=== PATIENT | female | born 2000 | race American Indian/Alaskan Native ===

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

== ENCOUNTER 2019-04-08 08:50 | Emergency (ER) | payer MEDICAID ==
--- NOTE | 2019-04-08 09:12 | EDM.PDOC ---
ED HPI GENERAL MEDICAL PROBLEM - General Chief Complaint: Fever Stated Complaint: FEVER FOR COUPLE OF DAYS Time Seen by Provider: 04/08/19 09:10 Source of Information: Reports: Patient, Family (Mother), Old Records, RN, RN Notes Reviewed History Limitations: Reports: No Limitations - History of Present Illness INITIAL COMMENTS - FREE TEXT/NARRATIVE: Pt presents to ER from home by POV with c/o fever since Saturday afternoon (), with body aches, nausea, loss of appetite, occasional flank pain, and occasional headache. She states that she vomited x2 yesterday. She denies abdominal pain, diarrhea, sore throat, rash, cough, dysuria, neck pain or stiffness. Pt and her mother are very worried because the mother's co-worker's son recently had viral meningitis. However, neither the co-worker nor the mother have had any symptoms, and the pt did not have any contact with the boy reported to have had meningitis. The pt does state that she was treated Macrobid for pyelonephritis a few weeks ago and did not f/u to recheck her urine as she was instructed. Onset: Gradual Onset Date: 04/07/19 Duration: Constant Location: Reports: Head, Generalized Quality: Reports: Ache Severity: Moderate Improves with: Reports: None Worsens with: Reports: None Associated Symptoms: Reports: No Other Symptoms Back Pain Score (Numeric/FACES): 7 - Related Data Allergies Allergy/AdvReac Type Severity Reaction Status Date / Time No Known Allergies Allergy Verified 04/08/19 09:03 Past Medical History - Past Health History Medical/Surgical History: Denies Medical/Surgical History HEENT History: Reports: None Cardiovascular History: Reports: None Respiratory History: Reports: Other (See Below) Other Respiratory History: Reactive airway disease Gastrointestinal History: Reports: None Genitourinary History: Reports: None APIARIST History: Reports: Musculoskeletal History: Reports: Other (See Below) Other Musculoskeletal History: patella femoral syndroma Neurological History: Reports: None Psychiatric History: Reports: None Endocrine/Metabolic History: Reports: None Hematologic History: Reports: None Immunologic History: Reports: None Oncologic (Cancer) History: Reports: None Dermatologic History: Reports: None - Infectious Disease History Infectious Disease History: Reports: None - Past Surgical History Head Surgeries/Procedures: Reports: None Social & Family History - Family History Family Medical History: Noncontributory - Tobacco Use Smoking Status *Q: Current Every Day Smoker Years of Tobacco use: 2 Packs/Tins Daily: 0.5 Second Hand Smoke Exposure: No - Caffeine Use Caffeine Use: Reports: Soda - Recreational Drug Use Recreational Drug Use: Yes Drug Use in Last 12 Months: Yes Recreational Drug Type: Reports: Marijuana/Hashish - Living Situation & Occupation Living situation: Reports: with Family ED ROS GENERAL - Review of Systems Review Of Systems: ROS reveals no pertinent complaints other than HPI. ED EXAM, GENERAL - Physical Exam Exam: See Below Exam Limited By: No Limitations General Appearance: Alert, No Apparent Distress Eye Exam: Bilateral Eye: Normal Inspection Ears: Normal External Exam, Normal Canal, Hearing Grossly Normal, Normal TMs Nose: Normal Inspection, Normal Mucosa, No Blood Throat/Mouth: Normal Lips, Normal Oropharynx, Normal Voice, No Airway Compromise , Other (Dry oral membranes) Head: Atraumatic, Normocephalic Neck: Normal Inspection, Supple, Non-Tender, Full Range of Motion, Other (No nuchal rigidity). No: Lymphadenopathy (L), Lymphadenopathy (R) Respiratory/Chest: No Respiratory Distress, Lungs Clear, Normal Breath Sounds, No Accessory Muscle Use, Chest Non-Tender Cardiovascular: Regular Rate, Rhythm, Tachycardia GI/Abdominal: Normal Bowel Sounds, Soft, Non-Tender, No Organomegaly, No Distention, No Abnormal Bruit, No Mass Back Exam: Normal Inspection Extremities: Normal Inspection, Normal Range of Motion, Non-Tender, Normal Capillary Refill, No Pedal Edema Neurological: Alert, Oriented, CN II-XII Intact, Normal Cognition, Normal Gait, No Motor/Sensory Deficits Psychiatric: Normal Affect, Normal Mood Skin Exam: Warm, Dry, Intact, Normal Color, No Rash Course - Vital Signs Last Recorded V/S: Last Vital Signs Temp 98.4 F 04/08/19 10:07 Pulse 100 04/08/19 10:10 Resp 16 04/08/19 10:10 BP 111/65 04/08/19 10:10 Pulse Ox 98 04/08/19 10:10 - Orders/Labs/Meds Orders: Active Orders 24 hr Category Date Time Status Peripheral IV Care [RC] . DIRECTED Care 04/08/19 09:20 Active CHLAMYDIA AND GONORRHEA BY TMA Routine Lab 04/08/19 09:57 Received CULTURE BLOOD [BC] Stat Lab 04/08/19 09:30 Received CULTURE BLOOD [] Stat Lab 04/08/19 09:35 Received CULTURE STREP A CONFIRMATION [] Stat Lab 04/08/19 09:29 Results CULTURE URINE [] Stat Lab 04/08/19 09:57 Received STREP SCRN A RAPID W CULT CONF [] Stat Lab 04/08/19 09:29 Results UA W/MICROSCOPIC [URIN] Stat Lab 04/08/19 09:57 Results Sodium Chloride 0.9% [Saline Flush] Med 04/08/19 09:20 Active 10 ml FLUSH ASDIRECTED PRN cefTRIAXone [Rocephin] 2 gm Med 04/08/19 10:32 Active Sodium Chloride 0.9% [Normal Saline] 100 ml IV ONETIME Blood Culture x2 Reflex Set [OM.PC] Stat Oth 04/08/19 09:20 Ordered Peripheral IV Insertion Adult [OM.PC] Stat Oth 04/08/19 09:20 Ordered Medication Orders Ceftriaxone Sodium 2 gm/ (Sodium Chloride) 100 mls @ 200 mls/hr IV ONETIME ONE Stop: 04/08/19 11:01 Last Admin: 04/08/19 10:41 Dose: 200 mls/hr Sodium Chloride (Saline Flush) 10 ml FLUSH ASDIRECTED PRN PRN Reason: Keep Vein Open Last Admin: 04/08/19 09:36 Dose: 10 ml Labs: Laboratory Tests 04/08/19 04/08/19 04/08/19 Range/Units 09:30 09:30 09:35 WBC 22.5 H (5.0-10.0) 10^3/uL RBC 4.60 (4.2-5.4) 10^6/uL Hgb 13.0 D (12.0-16.0) g/dL Hct 38.7 (37.0-47.0) % MCV 84.1 D (80-100) fL MCH 28.3 (27.0-34.0) pg MCHC 33.6 (33.0-35.0) g/dL Plt Count 132 L (150-450) 10^3/uL Neut % (Auto) 87.7 H (42.2-75.2) % Lymph % (Auto) 3.4 L (20.5-50.1) % [place] % (Auto) 8.9 H (2-8) % Eos % (Auto) 0.0 L (1.0-3.0) % Baso % (Auto) 0.0 (0.0-1.0) % Sodium 134 L (135-145) mmol/L Potassium 3.1 L (3.6-5.0) mmol/L Chloride 98 L (101-111) mmol/L Carbon Dioxide 22.0 (21.0-31.0) mmol/L Anion Gap 17.1 BUN 10 (7-18) mg/dL Creatinine 0.8 (0.6-1.3) mg/dL Est Cr Clr Drug Dosing 97.35 mL/min Estimated GFR (MDRD) > 60 BUN/Creatinine Ratio 12.50 Glucose 128 H (74-105) mg/dL Lactic Acid 1.2 (0.5-2.2) mmol/L Calcium 8.8 (8.4-10.2) mg/dl Total Bilirubin 1.7 H (0.2-1.0) mg/dL AST 19 (10-42) IU/L ALT 11 (10-60) IU/L Alkaline Phosphatase 59 (42-121) IU/L Total Protein 8.3 H (6.7-8.2) g/dl Albumin 4.4 (3.2-5.5) g/dl Globulin 3.9 Albumin/Globulin Ratio 1.13 Urine Color (YELLOW) Urine Appearance (CLEAR) Urine pH (5.0-9.0) Ur Specific [place] (1.005-1.030) Urine Protein (NEGATIVE) Urine Glucose (UA) (NEGATIVE) Urine Ketones (NEGATIVE) Urine Occult Blood (NEGATIVE) Urine Nitrite (NEGATIVE) Urine Bilirubin (NEGATIVE) Urine Urobilinogen (0.2-1.0) mg/dL Ur Leukocyte Esterase (NEGATIVE) Urine HCG, Qual Urine Opiates Screen (NEGATIVE) Ur Oxycodone Screen (NEGATIVE) Urine Methadone Screen (NEGATIVE) Ur Barbiturates Screen (NEGATIVE) U Tricyclic Antidepress (NEGATIVE) Ur Phencyclidine Scrn (NEGATIVE) Ur Amphetamine Screen (NEGATIVE) U Methamphetamines Scrn (NEGATIVE) Urine MDMA Screen (NEGATIVE) U Benzodiazepines Scrn (NEGATIVE) Urine Cocaine Screen (NEGATIVE) U Marijuana (THC) Screen (NEGATIVE) 04/08/19 04/08/19 04/08/19 Range/Units 09:57 09:57 09:57 WBC (5.0-10.0) 10^3/uL RBC (4.2-5.4) 10^6/uL Hgb (12.0-16.0) g/dL Hct (37.0-47.0) % MCV (80-100) fL MCH (27.0-34.0) pg MCHC (33.0-35.0) g/dL Plt Count (150-450) 10^3/uL Neut % (Auto) (42.2-75.2) % Lymph % (Auto) (20.5-50.1) % [place] % (Auto) (2-8) % Eos % (Auto) (1.0-3.0) % Baso % (Auto) (0.0-1.0) % Sodium (135-145) mmol/L Potassium (3.6-5.0) mmol/L Chloride (101-111) mmol/L Carbon Dioxide (21.0-31.0) mmol/L Anion Gap BUN (7-18) mg/dL Creatinine (0.6-1.3) mg/dL Est Cr Clr Drug Dosing mL/min Estimated GFR (MDRD) BUN/Creatinine Ratio Glucose (74-105) mg/dL Lactic Acid (0.5-2.2) mmol/L Calcium (8.4-10.2) mg/dl Total Bilirubin (0.2-1.0) mg/dL AST (10-42) IU/L ALT (10-60) IU/L Alkaline Phosphatase (42-121) IU/L Total Protein (6.7-8.2) g/dl Albumin (3.2-5.5) g/dl Globulin Albumin/Globulin Ratio Urine Color Yellow (YELLOW) Urine Appearance Cloudy (CLEAR) Urine pH 5.5 (5.0-9.0) Ur Specific [place] 1.025 (1.005-1.030) Urine Protein 100 H (NEGATIVE) Urine Glucose (UA) Negative (NEGATIVE) Urine Ketones 40 H (NEGATIVE) Urine Occult Blood Moderate H (NEGATIVE) Urine Nitrite Negative (NEGATIVE) Urine Bilirubin Negative (NEGATIVE) Urine Urobilinogen 1.0 (0.2-1.0) mg/dL Ur Leukocyte Esterase Moderate H (NEGATIVE) Urine HCG, Qual Negative Urine Opiates Screen Negative (NEGATIVE) Ur Oxycodone Screen Positive H (NEGATIVE) Urine Methadone Screen Negative (NEGATIVE) Ur Barbiturates Screen Negative (NEGATIVE) U Tricyclic Antidepress Negative (NEGATIVE) Ur Phencyclidine Scrn Negative (NEGATIVE) Ur Amphetamine Screen Negative (NEGATIVE) U Methamphetamines Scrn Negative (NEGATIVE) Urine MDMA Screen Negative (NEGATIVE) U Benzodiazepines Scrn Negative (NEGATIVE) Urine Cocaine Screen Negative (NEGATIVE) U Marijuana (THC) Screen Positive H (NEGATIVE) Meds: Medications Generic Name Dose Route Start Last Admin Trade Name Freq PRN Reason Stop Dose Admin Ceftriaxone Sodium 2 gm/ 100 mls @ 200 mls/hr 04/08/19 10:32 04/08/19 10:41 Sodium Chloride IV 04/08/19 11:01 200 mls/hr ONETIME ONE Administration Sodium Chloride 10 ml 04/08/19 09:20 04/08/19 09:36 Saline Flush FLUSH 10 ml ASDIRECTED PRN Administration Keep Vein Open Discontinued Medications Generic Name Dose Route Start Last Admin Trade Name Freq PRN Reason Stop Dose Admin Acetaminophen 650 mg 04/08/19 09:21 04/08/19 09:36 Tylenol PO 04/08/19 09:22 650 mg NOW ONE Administration Sodium Chloride 1,000 mls @ 999 mls/hr 04/08/19 09:21 04/08/19 09:35 Normal Saline IV 04/08/19 10:21 999 mls/hr .BOLUS ONE Administration Ketorolac Tromethamine 30 mg 04/08/19 09:21 04/08/19 10:09 Toradol IVPUSH 04/08/19 09:22 30 mg ONETIME ONE Administration Ondansetron HCl 4 mg 04/08/19 09:21 04/08/19 09:36 Zofran IV 04/08/19 09:22 4 mg ONETIME ONE Administration - Re-Assessments/Exams Free Text/Narrative Re-Assessment/Exam: 04/08/19 10:44 Review of 03/17/19 ER visit from [place] reveals urine culture sensitive to Rocephin and Levaquin. Although the pt was diagnosed with pyelonephritis, she was prescribed Macrobid which does not cover kidney infections. Departure - Departure Time of Disposition: 10:50 Disposition: Home, Self-Care 01 Condition: Fair Clinical Impression: Pyelonephritis - Discharge Information *PRESCRIPTION DRUG MONITORING PROGRAM REVIEWED*: No *COPY OF PRESCRIPTION DRUG MONITORING REPORT IN PATIENT MANSOOR: No Instructions: Pyelonephritis, Adult, [id number], Fever, Adult, [id number] Forms: ED Department Discharge Additional Instructions: Rx: Levaquin 500mg Rx: Zofran 4mg Drink plenty of water. Follow up in clinic in 7 to 10 days for urine recheck. Return to ER if not improving as expected or if worse at any time. - My Orders Last 24 Hours: My Active Orders 04/08/19 09:20 Peripheral IV Care [RC] . DIRECTED Sodium Chloride 0.9% [Saline Flush] 10 ml FLUSH ASDIRECTED PRN Blood Culture x2 Reflex Set [OM.PC] Stat Peripheral IV Insertion Adult [OM.PC] Stat 04/08/19 09:29 CULTURE STREP A CONFIRMATION [RM] Stat STREP SCRN A RAPID W CULT CONF [RM] Stat 04/08/19 09:30 CULTURE BLOOD [BC] Stat 04/08/19 09:35 CULTURE BLOOD [BC] Stat 04/08/19 09:57 CHLAMYDIA AND GONORRHEA BY TMA Routine CULTURE URINE [RM] Stat UA W/MICROSCOPIC [URIN] Stat 04/08/19 10:32 cefTRIAXone [Rocephin] 2 gm Sodium Chloride 0.9% [Normal Saline] 100 ml IV ONETIME - Assessment/Plan Last 24 Hours: My Active Orders 04/08/19 09:20 Peripheral IV Care [RC] . DIRECTED Sodium Chloride 0.9% [Saline Flush] 10 ml FLUSH ASDIRECTED PRN Blood Culture x2 Reflex Set [OM.PC] Stat Peripheral IV Insertion Adult [OM.PC] Stat 04/08/19 09:29 CULTURE STREP A CONFIRMATION [RM] Stat STREP SCRN A RAPID W CULT CONF [RM] Stat 04/08/19 09:30 CULTURE BLOOD [BC] Stat 04/08/19 09:35 CULTURE BLOOD [BC] Stat 04/08/19 09:57 CHLAMYDIA AND GONORRHEA BY TMA Routine CULTURE URINE [RM] Stat UA W/MICROSCOPIC [URIN] Stat 04/08/19 10:32 cefTRIAXone [Rocephin] 2 gm Sodium Chloride 0.9% [Normal Saline] 100 ml IV ONETIME
[2019-04-08] MEDS ORDERED: Sodium Chloride 0.9% 10 ML Syringe FLUSH PRN (09:20)
[2019-04-08] MEDS ORDERED: Ketorolac 30 MG/ML SDV IVPUSH ONE (09:21)
[2019-04-08] MEDS ORDERED: Sodium Chloride 0.9% 1,000 ML IV ONE (09:21)
[2019-04-08] MEDS ORDERED: Ondansetron 4 MG/2 ML SDV IV ONE (09:21)
[2019-04-08] MEDS ORDERED: Acetaminophen 325 MG Tab PO ONE (09:21)
[2019-04-08 10:02] LABS: ANION GAP 17.1; CHLORIDE,CL 98 mmol/L (101-111); SODIUM,NA 134 mmol/L (135-145)
[2019-04-08 10:11] VITALS: BP 111/65; PULSE 100
[2019-04-08] MEDS ORDERED: cefTRIAXone 2 GM in Sodium Chloride 0.9% 100 ML IV ONE (10:32)
== END 2019-04-08 11:15 | disposition home or self-care (01) ==
LOC: DL.ED 08:50
DX: N12 Tubulo-interstitial nephritis, not specified as acute or chronic (principal); F17.210 Nicotine dependence, cigarettes, uncomplicated
CPT/HCPCS: 36415; 80053; 80305; 81001; 81025; 83605; 85025; 87040; 87081; 87086; 87088; 87186; 87430; 87491; 87591; 87804; 96361; 96365; 96375; 99283; A9270; J0696; J1885; J2405; J7030; J7050

== ENCOUNTER 2020-01-11 02:12 | Inpatient (IN) | payer MEDICAID ==
[2020-01-11] MEDS ORDERED: Sodium Chloride 0.9% 10 ML Syringe FLUSH PRN (02:34)
[2020-01-11] MEDS: Lactated Ringers 1,000 ML IV SCH ×2 (02:35→03:25)
--- NOTE | 2020-01-11 02:38 | PCM.LDHP ---
L&D History of Present Illness - General Date of Service: 01/11/20 Admit Problem/Dx: Patient Status Order with Admit Dx/Problem 01/11/20 02:35 Patient Status [ADT] Routine Admission Diagnosis/Problem Admission Diagnosis/Problem care in third trimester Source of Information: Patient History Limitations: Reports: No Limitations - History of Present Illness Introduction:: 19-year-old at unknown gestational age presents with increased contractions. Patient states she has had increased contractions off and on throughout the day but they became regular and painful starting around 2200 this evening. She has not had any care with the due to insurance issues and fear of COVID. She is unsure of her LMP but is "pretty sure" she is at least 35 weeks gestation. Patient reports she has had some swelling over the past 2 weeks. Baby has been active. No vaginal bleeding or leaking. No headaches or vision changes. She does admit to regular THC use and occasional oxycodone use during this . No other drug use. Last was uncomplicated. She was induced at 40 weeks gestation. Delivery was vacuum-assisted due to tachycardia. Patient did have a 500 mL PPH that required rectal cytotec. 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: Musculoskeletal History: Reports: Other (See Below) Other Musculoskeletal History: patella femoral syndroma Neurological History: Reports: None Psychiatric History: Reports: None Endocrine/Metabolic History: Reports: None Hematologic History: Reports: None Immunologic History: Reports: None Oncologic (Cancer) History: Reports: None Dermatologic History: Reports: None - Infectious Disease History Infectious Disease History: Reports: None - Past Surgical History Head Surgeries/Procedures: Reports: None Social & Family History - Family History Family Medical History: Noncontributory - Caffeine Use Caffeine Use: Reports: Soda - Living Situation & Occupation Living situation: Reports: with Family H&P Review of Systems - Review of Systems: Review Of Systems: See Below General: Reports: No Symptoms HEENT: Reports: No Symptoms Pulmonary: Reports: No Symptoms Cardiovascular: Reports: No Symptoms Genitourinary: Reports: No Symptoms Musculoskeletal: Reports: Back Pain Skin: Reports: No Symptoms Neurological: Reports: No Symptoms L&D Exam - Exam Exam: See Below - OB Specific Contraction Duration (sec): 60 Contraction Frequency (min): 3 Contraction Intensity: Moderate to Strong Movement: Active Heart Tones: Present Heart Tones per Min: 130 Heart Rate (FHR) Variability: Moderate (6-25 bmp) Presentation: Vertex - Nolan Score Nolan Score Cervix Position: Anterior Nolan Score Consistency: Soft Nolan Score Effacement: >80% Nolan Score Dilation: > 5 cm Nolan Score 's Station: -1 ,0 Nolan Score Total: 12 - Exam General: Alert, Oriented HEENT: Conjunctiva Clear, Mucosa Moist & [place] Lungs: Clear to Auscultation, Normal Respiratory Effort Cardiovascular: Regular Rate, Regular Rhythm. No: Systolic Murmur, Diastolic Murmur GI/Abdominal Exam: Non-Tender Genitourinary: Normal external exam Back Exam: Normal Inspection Extremities: No Pedal Edema Skin: Warm, Dry, Intact - Problem List (1) care in third trimester SNOMED Code(s): 348712838, 55263083, 02933451, 438591364, 514037885 ICD Code: Z34.93 - ENCNTR FOR SUPRVSN OF NORMAL PREG, UNSP, THIRD TRIMESTER Status: Acute Current Visit: Yes (2) labor in third trimester SNOMED Code(s): 0766725 ICD Code: O60.03 - LABOR WITHOUT DELIVERY, THIRD TRIMESTER Status: Acute Current Visit: Yes (3) No care in current in third trimester SNOMED Code(s): 902924663, 327581431 ICD Code: O09.33 - SUPRVSN OF PREG W INSUFFICIENT ANTENAT CARE, THIRD TRIMESTER Status: Acute Current Visit: Yes (4) Drug use affecting in third trimester SNOMED Code(s): 13848654, 04386767, 300503589 ICD Code: O99.323 - DRUG USE COMPLICATING , THIRD TRIMESTER Status: Acute Current Visit: Yes Problem List Initiated/Reviewed/Updated: Yes Orders Last 24hrs: Active Orders 24 hr Category Date Time Status Patient Status [ADT] Routine ADT 01/11/20 02:35 Ordered Monitoring [RC] CONTINUOUS Care 01/11/20 02:35 Ordered POC Labs [RC] ASDIRECTED Care 01/11/20 02:35 Ordered POC Labs [RC] ASDIRECTED Care 01/11/20 02:37 Ordered Peripheral IV Care [RC] . DIRECTED Care 01/11/20 02:36 Ordered Up ad Aurea [RC] ASDIRECTED Care 01/11/20 02:35 Ordered Vital Signs [RC] PER UNIT ROUTINE Care 01/11/20 02:35 Ordered Nothing Per Oral Diet [DIET] Diet 01/11/20 Dinner Ordered OB 2 Or 3 Tri Sgl 1st Gest [US] Stat Exams 01/11/20 02:34 Ordered ALANINE AMINOTRANSFERASE,ALT [CHEM] Routine Lab 01/11/20 02:37 Ordered ASPARTATE AMNIOTRANSFERASE,AST [CHEM] Routine Lab 01/11/20 02:37 Ordered BLOOD UREA NITROGEN,BUN [CHEM] Routine Lab 01/11/20 02:37 Ordered CBC W/O DIFF,HEMOGRAM [HEME] Routine Lab 01/11/20 02:37 Ordered CHLAMYDIA AND GONORRHEA BY TMA Routine Lab 01/11/20 02:37 Ordered CREATININE W/GFR [CHEM] Routine Lab 01/11/20 02:37 Ordered CULTURE GROUP B STREP [RM] Routine Lab 01/11/20 02:37 Ordered DRUG SCREEN URINE BIORAD [URCHEM] Routine Lab 01/11/20 02:37 Ordered HBSAG SCREEN [REF] Urgent Lab 01/11/20 02:37 Ordered HEP C VIRUS AB [REF] Urgent Lab 01/11/20 02:37 Ordered HIV-1/2 AG/AB COMBO 4TH GEN [CHEM] Routine Lab 01/11/20 02:37 Ordered LACTATE DEHYDROGENASE,LDH [CHEM] Routine Lab 01/11/20 02:37 Ordered MISC TEST Routine Lab 01/11/20 02:37 Ordered PROTEIN/CREATININE RATIO,URINE [URCHEM] Routine Lab 01/11/20 02:37 Ordered RPR (SYPHILIS SERO) W/ RFLX [REF] Routine Lab 01/11/20 02:37 Ordered RUBELLA ANTIBODY, IGG [REF] Routine Lab 01/11/20 02:37 Ordered TYPE AND SCREEN [BBK] Routine Lab 01/11/20 02:37 Ordered UA RFX AZCKARY AND CULT IF INDIC [URIN] Routine Lab 01/11/20 02:37 Ordered URIC ACID [CHEM] Routine Lab 01/11/20 02:37 Ordered WET PREP [MYC] Routine Lab 01/11/20 02:37 Ordered Acetaminophen [Tylenol] Med 01/11/20 02:34 Ordered 650 mg PO Q4H PRN Lactated Ringers @ 125 MLS/HR(1000ml) Med 01/11/20 02:45 Ordered Lactated Ringers [Ringers, Lactated] 1,000 ml IV ASDIRECTED Sodium Chloride 0.9% [Saline Flush] Med 01/11/20 02:34 Ordered 10 ml FLUSH ASDIRECTED PRN Peripheral IV Insertion Adult [OM.PC] Urgent Oth 01/11/20 02:34 Ordered Resuscitation Status Routine Resus Stat 01/11/20 02:34 Ordered Medication Orders Acetaminophen (Tylenol) 650 mg PO Q4H PRN PRN Reason: Pain (mild 1-3) Lactated Ringer's (Ringers, Lactated) 1,000 mls @ 125 mls/hr IV ASDIRECTED MACIEL Sodium Chloride (Saline Flush) 10 ml FLUSH ASDIRECTED PRN PRN Reason: Keep Vein Open Assessment/Plan Comment:: 19-year-old at unknown gestational age presenting in active labor --Ultrasound shows 36w1d fetus in vertex presentation, placenta is clear of the cervix 1. Initiate routine intrapartum orders 2. IOB labs, UDS, GBS, wet prep and STD testing were obtained 3. PIH labs were obtained as patient does have elevated blood pressures 4. Patient desires intrathecal 5. Expectant management. Anticipate . Tiffany Lozano MD
[2020-01-11] MEDS ORDERED: Lactated Ringers 1,000 ML IV ONE (03:18)
[2020-01-11] MEDS ORDERED: Penicillin G Potassium 5 MILLUNITS in Sodium Chloride 0.9% 100 ML IV ONE (03:18)
[2020-01-11] MEDS ORDERED: Lidocaine 1% 30 ML SDV INJECT PRN (03:18)
[2020-01-11] MEDS ORDERED: Misoprostol 400 MCG (4 X 100 MCG TAB) RECTAL PRN (03:18)
[2020-01-11] MEDS ORDERED: Carboprost Tromethamine 250 MCG/1 ML Amp IM PRN (03:18)
[2020-01-11] MEDS ORDERED: Tranexamic Acid 1,000 MG in Sodium Chloride 0.9% 100 ML IV PRN (03:18)
[2020-01-11] MEDS ORDERED: Ondansetron 4 MG/2 ML SDV IVPUSH PRN (03:18)
[2020-01-11] MEDS ORDERED: Methylergonovine 0.2 MG/1 ML Amp IM PRN (03:18)
--- NOTE | 2020-01-11 03:22 | US ---
PROCEDURE INFORMATION: Exam: US After First Trimester, Transabdominal Exam date and time: 01/11/2020 4:53 AM Age: 19 years old Clinical indication: Lmp or gestational age (in weeks): ? ; Antepartum complications; Other: No care assess age and placenta having contractions; ; Additional info: No care; Assess age and placenta TECHNIQUE: Imaging protocol: Real-time transabdominal obstetrical ultrasound of the maternal pelvis and a second or third trimester with image documentation. COMPARISON: No relevant prior studies available. FINDINGS: Gestation: Single live intrauterine gestation. Heart rate: heartbeat measures 120 bpm. Presentation: Single live intrauterine in cephalic position. Placenta: The placenta is fundal into the left and appears normal. Amniotic fluid: Amniotic fluid is normal for gestational age. BIOMETRY: Estimated gestational age: Ultrasound measurements correspond to an estimated age of 36 weeks 1 day. Estimated due date: 02/07/2020. Estimated weight: Estimated weight is 6 lb 8 oz. Biparietal diameter: 85.6 mm Head circumference: 320.9 mm. MATERNAL ANATOMY: Uterus: Unremarkable. Cervix: Unremarkable. Right adnexa: Ovary is obscured by overlying bowel gas. Left adnexa: Ovary is obscured by overlying bowel gas. IMPRESSION: Single live intrauterine with ultrasound measurements corresponding to an age of 36 weeks 1 day. No acute abnormality. survey not performed.
[2020-01-11] MEDS ORDERED: fentaNYL 100 MCG/2 ML SDV ONE (03:23)
[2020-01-11] MEDS ORDERED: EPINEPHrine 1 MG/1 ML Amp ONE ×2 (03:23→15:36)
[2020-01-11] MEDS ORDERED: Penicillin G Potassium 5,000,000 Unit Vial ONE (03:25)
[2020-01-11] MEDS ORDERED: Oxytocin/Normal Saline 30 UNIT/500 ML BAG IV SCH (03:30)
[2020-01-11] MEDS ORDERED: cefTRIAXone 1 GM in Sodium Chloride 0.9% 50 ML IV ONE ×2 (05:00→09:30)
[2020-01-11] MEDS ORDERED: Simethicone 80 MG Tab.Chew PO PRN (05:05)
[2020-01-11] MEDS ORDERED: Benzocaine/Menthol 20%-0.5% Spray 56 GM Canister TOP PRN (05:05)
[2020-01-11] MEDS ORDERED: Oxytocin 10 Units/1 ML SDV IM PRN (05:05)
--- NOTE | 2020-01-11 05:26 | PCM.DEL ---
L & D Note - General Info Date of Service: 01/11/20 - Delivery Note Labor: Spontaneous, Augmented by ARM Delivery Outcome: Livebirth Infant Delivery Method: Spontaneous Vaginal Delivery-Single Presentation: Vertex Nuchal Cord: Present, Reduced Anesthesia Type: Intrathecal Amniotic Fluid Description: Clear Episiotomy Type: None Laceration: None Placenta: Intact, Spontaneous Cord: 3 Vessels Estimated Blood Loss: 300 Resuscitation Needed: Yes : Suctioned, Bulb Syringe, Stimulated, Warmed, Warmer Used Score 1 min: 8 Score 5 min: 9 Delivery Comments (Free Text/Narrative):: 19-year-old at unknown gestational age presented in active labor. Ultrasou nd confirmed a 36w1d fetus in vertex position. Patient was noted to be 8 cm dilated. She received 1 dose PCN for GBS unknown status. Intrathecal was given for pain control. Patient progressed to 9+ cm. AROM was performed for small amount of clear fluid. Patient progressed to complete dilation. After about 25 minutes of pushing, she delivered a viable female with Apgars of 8 and 9 at 1 and 5 minutes respectively. Nuchal cord x 2 was reduced at the perineum after delivery. was placed on the patient's chest. Cord was clamped x 2 and cut by patient's significant other. Cord blood was collected. Placenta delivered spontaneously about 3 minutes later. Pitocin was initiated. Uterus was initially firm then became boggy. Uterine atony improved with uterine massage. Perineum was inspected and noted to be intact. Patient tolerated the procedure well, and there were no immediate complications. - General Info Date of Service: 01/11/20 - Patient Data Lab Results Last 24 Hours: Laboratory Results - last 24 hr 01/11/20 01/11/20 01/11/20 Range/Units 02:37 02:39 02:39 WBC 10.8 H (5.0-10.0) 10^3/uL RBC 3.35 L (4.2-5.4) 10^6/uL Hgb 8.2 L D (12.0-16.0) g/dL Hct 26.6 L (37.0-47.0) % MCV 79.4 L D (80-100) fL MCH 24.5 L (27.0-34.0) pg MCHC 30.8 L (33.0-35.0) g/dL Plt Count 168 (150-450) 10^3/uL BUN 11 (7-18) mg/dL Creatinine 0.66 (0.55-1.02) mg/dL Est Cr Clr Drug Dosing TNP Estimated GFR (MDRD) > 60 Uric Acid 4.7 (2.6-6.0) mg/dL AST 15 (15-37) U/L ALT 14 (14-59) U/L Lactate Dehydrogenase 155 (81-234) U/L Urine Color Yellow (YELLOW) Urine Appearance Slightly cloudy (CLEAR) Urine pH 7.0 (5.0-9.0) Ur Specific [place] 1.020 (1.005-1.030) Urine Protein Negative (NEGATIVE) Urine Glucose (UA) Negative (NEGATIVE) Urine Ketones Negative (NEGATIVE) Urine Occult Blood Small H (NEGATIVE) Urine Nitrite Negative (NEGATIVE) Urine Bilirubin Negative (NEGATIVE) Urine Urobilinogen 0.2 (0.2-1.0) mg/dL Ur Leukocyte Esterase Moderate H (NEGATIVE) Urine RBC 0-5 /HPF Urine WBC 30-40 H (0-5/HPF) /HPF Ur Epithelial Cells Moderate H (NOT SEEN) /HPF Amorphous Sediment Rare (NOT SEEN) /HPF Urine Bacteria Few (0-FEW/HPF) /HPF Urine Mucus Few H (NOT SEEN) /LPF Ur Random Creatinine (No establ ref range) mg/dL U Random Total Protein (0.0-11.9) mg/dL Protein/Creatinin Ratio (<150.0) mg/g Urine Opiates Screen (NEGATIVE) Ur Oxycodone Screen (NEGATIVE) Urine Methadone Screen (NEGATIVE) Ur Barbiturates Screen (NEGATIVE) U Tricyclic Antidepress (NEGATIVE) Ur Phencyclidine Scrn (NEGATIVE) Ur Amphetamine Screen (NEGATIVE) U Methamphetamines Scrn (NEGATIVE) Urine MDMA Screen (NEGATIVE) U Benzodiazepines Scrn (NEGATIVE) Urine Cocaine Screen (NEGATIVE) U Marijuana (THC) Screen (NEGATIVE) HIV-1 Antibody Non-reactive (NONREACTIVE) HIV-2 Antibody Non-reactive (NONREACTIVE) HIV P24 Antigen Non-reactive (NONREACTIVE) SARS-CoV-2 RNA (RT-PCR) (NEGATIVE) Blood Type Gel Antibody Screen 01/11/20 01/11/20 01/11/20 Range/Units 02:39 02:42 02:42 WBC (5.0-10.0) 10^3/uL RBC (4.2-5.4) 10^6/uL Hgb (12.0-16.0) g/dL Hct (37.0-47.0) % MCV (80-100) fL MCH (27.0-34.0) pg MCHC (33.0-35.0) g/dL Plt Count (150-450) 10^3/uL BUN (7-18) mg/dL Creatinine (0.55-1.02) mg/dL Est Cr Clr Drug Dosing Estimated GFR (MDRD) Uric Acid (2.6-6.0) mg/dL AST (15-37) U/L ALT (14-59) U/L Lactate Dehydrogenase (81-234) U/L Urine Color (YELLOW) Urine Appearance (CLEAR) Urine pH (5.0-9.0) Ur Specific [place] (1.005-1.030) Urine Protein (NEGATIVE) Urine Glucose (UA) (NEGATIVE) Urine Ketones (NEGATIVE) Urine Occult Blood (NEGATIVE) Urine Nitrite (NEGATIVE) Urine Bilirubin (NEGATIVE) Urine Urobilinogen (0.2-1.0) mg/dL Ur Leukocyte Esterase (NEGATIVE) Urine RBC /HPF Urine WBC (0-5/HPF) /HPF Ur Epithelial Cells (NOT SEEN) /HPF Amorphous Sediment (NOT SEEN) /HPF Urine Bacteria (0-FEW/HPF) /HPF Urine Mucus (NOT SEEN) /LPF Ur Random Creatinine 40.40 (No establ ref range) mg/dL U Random Total Protein 13.2 H (0.0-11.9) mg/dL Protein/Creatinin Ratio 326.7 H (<150.0) mg/g Urine Opiates Screen Negative (NEGATIVE) Ur Oxycodone Screen Positive H (NEGATIVE) Urine Methadone Screen Negative (NEGATIVE) Ur Barbiturates Screen Negative (NEGATIVE) U Tricyclic Antidepress Negative (NEGATIVE) Ur Phencyclidine Scrn Negative (NEGATIVE) Ur Amphetamine Screen Negative (NEGATIVE) U Methamphetamines Scrn Negative (NEGATIVE) Urine MDMA Screen Negative (NEGATIVE) U Benzodiazepines Scrn Negative (NEGATIVE) Urine Cocaine Screen Negative (NEGATIVE) U Marijuana (THC) Screen Positive H (NEGATIVE) HIV-1 Antibody (NONREACTIVE) HIV-2 Antibody (NONREACTIVE) HIV P24 Antigen (NONREACTIVE) SARS-CoV-2 RNA (RT-PCR) (NEGATIVE) Blood Type O POSITIVE Gel Antibody Screen Negative 01/11/20 Range/Units 02:42 WBC (5.0-10.0) 10^3/uL RBC (4.2-5.4) 10^6/uL Hgb (12.0-16.0) g/dL Hct (37.0-47.0) % MCV (80-100) fL MCH (27.0-34.0) pg MCHC (33.0-35.0) g/dL Plt Count (150-450) 10^3/uL BUN (7-18) mg/dL Creatinine (0.55-1.02) mg/dL Est Cr Clr Drug Dosing Estimated GFR (MDRD) Uric Acid (2.6-6.0) mg/dL AST (15-37) U/L ALT (14-59) U/L Lactate Dehydrogenase (81-234) U/L Urine Color (YELLOW) Urine Appearance (CLEAR) Urine pH (5.0-9.0) Ur Specific [place] (1.005-1.030) Urine Protein (NEGATIVE) Urine Glucose (UA) (NEGATIVE) Urine Ketones (NEGATIVE) Urine Occult Blood (NEGATIVE) Urine Nitrite (NEGATIVE) Urine Bilirubin (NEGATIVE) Urine Urobilinogen (0.2-1.0) mg/dL Ur Leukocyte Esterase (NEGATIVE) Urine RBC /HPF Urine WBC (0-5/HPF) /HPF Ur Epithelial Cells (NOT SEEN) /HPF Amorphous Sediment (NOT SEEN) /HPF Urine Bacteria (0-FEW/HPF) /HPF Urine Mucus (NOT SEEN) /LPF Ur Random Creatinine (No establ ref range) mg/dL U Random Total Protein (0.0-11.9) mg/dL Protein/Creatinin Ratio (<150.0) mg/g Urine Opiates Screen (NEGATIVE) Ur Oxycodone Screen (NEGATIVE) Urine Methadone Screen (NEGATIVE) Ur Barbiturates Screen (NEGATIVE) U Tricyclic Antidepress (NEGATIVE) Ur Phencyclidine Scrn (NEGATIVE) Ur Amphetamine Screen (NEGATIVE) U Methamphetamines Scrn (NEGATIVE) Urine MDMA Screen (NEGATIVE) U Benzodiazepines Scrn (NEGATIVE) Urine Cocaine Screen (NEGATIVE) U Marijuana (THC) Screen (NEGATIVE) HIV-1 Antibody (NONREACTIVE) HIV-2 Antibody (NONREACTIVE) HIV P24 Antigen (NONREACTIVE) SARS-CoV-2 RNA (RT-PCR) Negative (NEGATIVE) Blood Type Gel Antibody Screen Manuel Results Last 24 Hours: Microbiology 01/11/20 02:42 Wet Prep - Final Vagina Med Orders - Current: Current Medications Acetaminophen (Tylenol) 650 mg PO Q4H PRN PRN Reason: Pain (mild 1-3) Benzocaine/Menthol (Dermoplast Pain Relief [place]) 0 gm TOP Q4H PRN PRN Reason: Perineal comfort measures Carboprost Tromethamine (Hemabate Ds) 250 mcg IM ASDIRECTED PRN PRN Reason: HEMORRHAGE Docusate Sodium (Colace) 100 mg PO BID PRN PRN Reason: Constipation Lactated Ringer's (Ringers, Lactated) 1,000 mls @ 125 mls/hr IV ASDIRECTED MACIEL Last Admin: 01/11/20 03:25 Dose: 125 mls/hr Documented by: Tranexamic Acid 1,000 mg/ (Sodium Chloride) 110 mls @ 660 mls/hr IV ONETIME PRN PRN Reason: Bleeding Oxytocin/Sodium Chloride (Pitocin In Ns 30 Unit/500 Ml) 30 unit in 500 mls @ 2 mls/hr IV TITRATE MACIEL; Protocol Ceftriaxone Sodium 1 gm/ (Sodium Chloride) 50 mls @ 100 mls/hr IV ONETIME ONE Stop: 01/11/20 05:49 Ibuprofen (Motrin) 800 mg PO Q8H PRN PRN Reason: Mild Pain or Fever Lidocaine HCl (Xylocaine-Mpf 1%) 30 ml INJECT ASDIRECTED PRN PRN Reason: Perineal Repair Methylergonovine Maleate (Methergine) 0.2 mg IM ASDIRECTED PRN PRN Reason: Hemorrhage Misoprostol (Cytotec) 800 mcg RECTAL ASDIRECTED PRN PRN Reason: Hemorrhage Ondansetron HCl (Zofran) 4 mg IVPUSH Q4H PRN PRN Reason: Nausea/Vomiting Oxytocin (Pitocin) 10 unit IM ONETIME PRN PRN Reason: Bleeding Prenat Multivit/[place]/Iron/Folic Ac ( Plus Iron) 1 each PO DAILY [facility] Simethicone (Simethicone) 80 mg PO Q4H PRN PRN Reason: Gas Sodium Chloride (Saline Flush) 10 ml FLUSH ASDIRECTED PRN PRN Reason: Keep Vein Open Witch Keisha (Medi-Pads) 1 each TOP Q4HR PRN PRN Reason: Perineal Comfort Measure Discontinued Medications Epinephrine HCl (Adrenalin) Confirm Administered Dose 1 mg .ROUTE .STK-MED ONE Stop: 01/11/20 03:24 Last Admin: 01/11/20 04:17 Dose: Not Given Documented by: Fentanyl (Sublimaze) Confirm Administered Dose 100 mcg .ROUTE .STK-MED ONE Stop: 01/11/20 03:24 Last Admin: 01/11/20 04:17 Dose: Not Given Documented by: Lactated Ringer's (Ringers, Lactated) 1,000 mls @ 999 mls/hr IV BOLUS ONE Stop: 01/11/20 04:18 Last Admin: 01/11/20 04:18 Dose: Not Given Documented by: Penicillin G Potassium 5 (millunits/ Sodium Chloride) 100 mls @ 200 mls/hr IV ONETIME ONE Stop: 01/11/20 03:47 Last Admin: 01/11/20 03:30 Dose: 200 mls/hr Documented by: Penicillin G Potassium 3 (millunits/ Sodium Chloride) 100 mls @ 200 mls/hr IV Q4H MACIEL Penicillin G Potassium (Pfizerpen) Confirm Administered Dose 5 millunits .ROUTE .STK-MED ONE Stop: 01/11/20 03:26 Last Admin: 01/11/20 04:17 Dose: Not Given Documented by: Sufentanil Citrate (Sufenta) Confirm Administered Dose 50 mcg .ROUTE .STK-MED ONE Stop: 01/11/20 03:25 Last Admin: 01/11/20 04:17 Dose: Not Given Documented by: - Problem List & Annotations (1) care in third trimester SNOMED Code(s): 108731085, 19055610, 55480406, 101287009, 217238205 Code(s): Z34.93 - ENCNTR FOR SUPRVSN OF NORMAL PREG, UNSP, THIRD TRIMESTER Status: Acute Current Visit: Yes (2) labor in third trimester SNOMED Code(s): 2613545 Code(s): O60.03 - LABOR WITHOUT DELIVERY, THIRD TRIMESTER Status: Acute Current Visit: Yes (3) No care in current in third trimester SNOMED Code(s): 025382477, 433446559 Code(s): O09.33 - SUPRVSN OF PREG W INSUFFICIENT ANTENAT CARE, THIRD TRIMESTER Status: Acute Current Visit: Yes (4) Drug use affecting in third trimester SNOMED Code(s): 69486353, 80300720, 299457599 Code(s): O99.323 - DRUG USE COMPLICATING , THIRD TRIMESTER Status: Acute Current Visit: Yes (5) Anemia affecting in third trimester SNOMED Code(s): 97012146, 22828579 Code(s): O99.013 - ANEMIA COMPLICATING , THIRD TRIMESTER Status: Acute Current Visit: Yes (6) UTI (urinary tract infection) in in third trimester SNOMED Code(s): 184684968, 160556018 Code(s): O23.43 - UNSP INFCT OF URINARY TRACT IN , THIRD TRIMESTER Status: Acute Current Visit: Yes (7) Gestational HTN SNOMED Code(s): 441871349 Code(s): O13.9 - GESTATIONAL HTN W/O SIGNIFICANT PROTEINURIA, UNSP TRIMESTER Status: Acute Current Visit: Yes - Problem List Review Problem List Initiated/Reviewed/Updated: Yes - My Orders Last 24 Hours: My Active Orders 01/11/20 02:34 Acetaminophen [Tylenol] 650 mg PO Q4H PRN Sodium Chloride 0.9% [Saline Flush] 10 ml FLUSH ASDIRECTED PRN Peripheral IV Insertion Adult [OM.PC] Urgent Resuscitation Status Routine 01/11/20 02:35 POC Labs [RC] ASDIRECTED Up ad Aurea [RC] ASDIRECTED Vital Signs [RC] PER UNIT ROUTINE 01/11/20 02:37 POC Labs [RC] ASDIRECTED CULTURE URINE [RM] Routine 01/11/20 02:39 HBSAG SCREEN [REF] Urgent HEP C VIRUS AB [REF] Urgent RPR (SYPHILIS SERO) W/ RFLX [REF] Routine RUBELLA ANTIBODY, IGG [REF] Routine 01/11/20 02:42 CHLAMYDIA AND GONORRHEA BY TMA Routine CULTURE GROUP B STREP [RM] Routine TRAMADOL, SCREEN ONLY, UR Routine 01/11/20 02:45 Lactated Ringers [Ringers, Lactated] 1,000 ml IV ASDIRECTED 01/11/20 03:14 Admission Status [Patient Status] [ADT] Routine 01/11/20 03:18 Notify Provider Vital Signs OB [RC] ASDIRECTED Carboprost Tromethamine [Hemabate DS] 250 mcg IM ASDIRECTED PRN Lidocaine 1% [Xylocaine-MPF 1%] 30 ml INJECT ASDIRECTED PRN Methylergonovine [Methergine] 0.2 mg IM ASDIRECTED PRN Ondansetron [Zofran] 4 mg IVPUSH Q4H PRN Tranexamic Acid [Cyklokapron] 1,000 mg Sodium Chloride 0.9% [Normal Saline] 100 ml IV ONETIME miSOPROStoL [Cytotec] 800 mcg RECTAL ASDIRECTED PRN Saline Lock Insert [OM.PC] Routine 01/11/20 03:30 Oxytocin/Normal Saline [Pitocin in NS 30 UNIT/500 ML] 30 unit in 500 ml IV TITRATE 01/11/20 05:05 Up ad Aurea [RC] ASDIRECTED Vital Signs [RC] PFP Benzocaine/Menthol [Dermoplast Pain Relief [place]] See Dose Instructions TOP Q4H PRN Docusate Sodium [Colace] 100 mg PO BID PRN Ibuprofen [Motrin] 800 mg PO Q8H PRN Oxytocin [Pitocin] 10 unit IM ONETIME PRN Simethicone 80 mg PO Q4H PRN witch Keisha [Medi-Pads] 1 each TOP Q4HR PRN Assess Lochia [WOMSER] Per Unit Routine Assess Uterine Involution [WOMSER] Per Unit Routine Breast Pump [WOMSER] Per Unit Routine Ice Therapy [OM.PC] Per Unit Routine Perineal Care [OM.PC] Per Unit Routine Sitz Bath [OM.PC] Per Unit Routine 01/11/20 05:20 cefTRIAXone [Rocephin] 1 gm Sodium Chloride 0.9% [Normal Saline] 50 ml IV ONETIME 01/11/20 Breakfast Regular Diet [DIET] 01/11/20 09:00 Vit with Ca/FA/Iron [ Plus Iron] 1 each PO DAILY 01/11/20 Dinner Nothing Per Oral Diet [DIET] 01/12/20 07:00 CBC W/O DIFF,HEMOGRAM [HEME] Routine - Assessment Assessment:: 19-year-old now status post - Plan Plan:: 1. Initiate routine orders 2. Will give 1 gram Rocephin IV for UTI 3. Will initiate ferrous sulfate twice daily for anemia 4. Patient meets criteria for gestational HTN/mild pre-eclampsia. Will closely monitor blood pressures 5. Plans to bottle feed 6. Anticipate discharge 01/13/2020 Tiffany Lozano MD
[2020-01-11] MEDS ORDERED: Penicillin G Potassium 3 MILLUNITS in Sodium Chloride 0.9% 100 ML IV SCH (08:00)
[2020-01-11] MEDS: Ferrous Sulfate 325 MG Tab PO SCH ×2 (09:28→18:36)
[2020-01-11] MEDS: Docusate Sodium 100 MG Cap PO PRN (09:28)
[2020-01-11] MEDS: Ibuprofen 800 MG Tab PO PRN ×2 (09:28→18:36)
[2020-01-11] MEDS: Prenatal Multivitamin with Calcium/Folic Acid/Iron Tab PO SCH (09:28)
[2020-01-11] MEDS ORDERED: fentaNYL 100 MCG/2 ML SDV IV ONE (15:36)
[2020-01-11] MEDS ORDERED: Sodium Chloride 0.9% 20 ML SDV IV ONE (15:36)
[2020-01-12] MEDS: Ibuprofen 800 MG Tab PO PRN ×2 (02:11→17:43)
[2020-01-12] MEDS: Ferrous Sulfate 325 MG Tab PO SCH ×2 (08:22→17:43)
[2020-01-12] MEDS: Prenatal Multivitamin with Calcium/Folic Acid/Iron Tab PO SCH (08:23)
[2020-01-12] MEDS: Docusate Sodium 100 MG Cap PO PRN (08:23)
[2020-01-12] MEDS ORDERED: Measles, Mumps & Rubella Vaccine 0.5 ML SDV SUBCUT ONE (14:00)
--- NOTE | 2020-01-12 22:22 | PCM.PNPP ---
- General Info Date of Service: 01/12/20 Subjective Update: Patient is doing well today. Pain controlled with Tylenol and ibuprofen. No fever, chills, dizziness or lightheadedness. Vaginal bleeding has been steady but not excessive. Tolerating a general diet. Urinating without difficulty. Bottle feeding. No concerns per patient or per nursing staff. Functional Status: Reports: Pain Controlled, Tolerating Diet, Ambulating, Urinating - Review of Systems General: Reports: No Symptoms HEENT: Reports: No Symptoms Pulmonary: Reports: No Symptoms Cardiovascular: Reports: No Symptoms Gastrointestinal: Reports: Abdominal Pain Genitourinary: Reports: No Symptoms Musculoskeletal: Reports: Back Pain Skin: Reports: No Symptoms Neurological: Reports: No Symptoms - General Info Date of Service: 01/12/20 - Patient Data Vital Signs - Most Recent: Last Vital Signs Temp 36.9 C 01/12/20 20:20 Pulse 128 H 01/12/20 20:20 Resp 18 01/12/20 20:20 BP 109/59 L 01/12/20 20:20 Pulse Ox 96 01/12/20 20:20 Weight - Most Recent: 66.678 kg Lab Results - Last 24 Hours: Laboratory Results - last 24 hr 01/11/20 01/11/20 01/12/20 Range/Units 02:39 02:42 05:45 WBC 9.3 (5.0-10.0) 10^3/uL RBC 3.18 L (4.2-5.4) 10^6/uL Hgb 7.8 L (12.0-16.0) g/dL Hct 25.2 L (37.0-47.0) % MCV 79.2 L (80-100) fL MCH 24.5 L (27.0-34.0) pg MCHC 31.0 L (33.0-35.0) g/dL Plt Count 150 (150-450) 10^3/uL Chlamydia/GC Source Genital C.trachomatis RNA (TMA) Negative (Negative) N.gonorrhoeae RNA (TMA) Negative (Negative) Rubella Immune Status N/a Rubella IgG Antibody Equivocal IU/mL Micro Results - Last 24 Hours: Microbiology 01/11/20 02:37 Urine Culture - Preliminary Urine, Voided MIXED POSITIVE TANJA DAY 1 Med Orders - Current: Current Medications Acetaminophen (Tylenol) 650 mg PO Q4H PRN PRN Reason: Pain (mild 1-3) Benzocaine/Menthol (Dermoplast Pain Relief [place]) 0 gm TOP Q4H PRN PRN Reason: Perineal comfort measures Carboprost Tromethamine (Hemabate Ds) 250 mcg IM ASDIRECTED PRN PRN Reason: HEMORRHAGE Docusate Sodium (Colace) 100 mg PO BID PRN PRN Reason: Constipation Last Admin: 01/12/20 08:23 Dose: 100 mg Documented by: Ferrous Sulfate (Ferrous Sulfate) 325 mg PO BIDMEALS [facility] Last Admin: 01/12/20 17:43 Dose: 325 mg Documented by: Lactated Ringer's (Ringers, Lactated) 1,000 mls @ 125 mls/hr IV ASDIRECTED [facility] Last Admin: 01/11/20 03:25 Dose: 125 mls/hr Documented by: Tranexamic Acid 1,000 mg/ (Sodium Chloride) 110 mls @ 660 mls/hr IV ONETIME PRN PRN Reason: Bleeding Oxytocin/Sodium Chloride (Pitocin In Ns 30 Unit/500 Ml) 30 unit in 500 mls @ 2 mls/hr IV TITRATE [facility]; Protocol Last Titration: 01/11/20 07:40 Dose: 0 munits/min, 0 mls/hr Documented by: Ibuprofen (Motrin) 800 mg PO Q8H PRN PRN Reason: Mild Pain or Fever Last Admin: 01/12/20 17:43 Dose: 800 mg Documented by: Lidocaine HCl (Xylocaine-Mpf 1%) 30 ml INJECT ASDIRECTED PRN PRN Reason: Perineal Repair Methylergonovine Maleate (Methergine) 0.2 mg IM ASDIRECTED PRN PRN Reason: Hemorrhage Misoprostol (Cytotec) 800 mcg RECTAL ASDIRECTED PRN PRN Reason: Hemorrhage Ondansetron HCl (Zofran) 4 mg IVPUSH Q4H PRN PRN Reason: Nausea/Vomiting Oxytocin (Pitocin) 10 unit IM ONETIME PRN PRN Reason: Bleeding Prenat Multivit/[place]/Iron/Folic Ac ( Plus Iron) 1 each PO DAILY [facility] Last Admin: 01/12/20 08:23 Dose: 1 each Documented by: Simethicone (Simethicone) 80 mg PO Q4H PRN PRN Reason: Gas Sodium Chloride (Saline Flush) 10 ml FLUSH ASDIRECTED PRN PRN Reason: Keep Vein Open [place] Val[place] (Medi-Pads) 1 each TOP Q4HR PRN PRN Reason: Perineal Comfort Measure Discontinued Medications Epinephrine HCl (Adrenalin) Confirm Administered Dose 1 mg .ROUTE .STK-MED ONE Stop: 01/11/20 03:24 Last Admin: 01/11/20 04:17 Dose: Not Given Documented by: Epinephrine HCl (Adrenalin) 0.1 mg .XX .STK-MED ONE Stop: 01/11/20 15:37 Fentanyl (Sublimaze) Confirm Administered Dose 100 mcg .ROUTE .STK-MED ONE Stop: 01/11/20 03:24 Last Admin: 01/11/20 04:17 Dose: Not Given Documented by: Fentanyl (Sublimaze) 30 mcg IV .STK-MED ONE Stop: 01/11/20 15:37 Lactated Ringer's (Ringers, Lactated) 1,000 mls @ 999 mls/hr IV BOLUS ONE Stop: 01/11/20 04:18 Last Admin: 01/11/20 04:18 Dose: Not Given Documented by: Penicillin G Potassium 5 (millunits/ Sodium Chloride) 100 mls @ 200 mls/hr IV ONETIME ONE Stop: 01/11/20 03:47 Last Admin: 01/11/20 03:30 Dose: 200 mls/hr Documented by: Penicillin G Potassium 3 (millunits/ Sodium Chloride) 100 mls @ 200 mls/hr IV Q4H MACIEL Ceftriaxone Sodium 1 gm/ (Sodium Chloride) 50 mls @ 100 mls/hr IV ONETIME ONE Stop: 01/11/20 05:29 Last Admin: 01/11/20 09:54 Dose: Not Given Documented by: Ceftriaxone Sodium 1 gm/ (Sodium Chloride) 50 mls @ 100 mls/hr IV ONETIME ONE Stop: 01/11/20 09:59 Last Admin: 01/11/20 09:30 Dose: 100 mls/hr Documented by: Measles/Mumps/Rubella Vaccine Live (M-M-R Ii Vaccine) 0.5 ml SUBCUT .ONCE ONE Stop: 01/12/20 14:01 Last Admin: 01/12/20 17:44 Dose: 0.5 ml Documented by: Penicillin G Potassium (Pfizerpen) Confirm Administered Dose 5 millunits .ROUTE .STK-MED ONE Stop: 01/11/20 03:26 Last Admin: 01/11/20 04:17 Dose: Not Given Documented by: Sodium Chloride (Normal Saline) 0.4 ml IV .STK-MED ONE Stop: 01/11/20 15:37 Sufentanil Citrate (Sufenta) Confirm Administered Dose 50 mcg .ROUTE .STK-MED ONE Stop: 01/11/20 03:25 Last Admin: 01/11/20 04:17 Dose: Not Given Documented by: Sufentanil Citrate (Sufenta) 20 mcg IV .STK-MED ONE Stop: 01/11/20 15:37 - Infant Interaction Infant Disposition, : [place] to Nursery Infant Feeding: Bottle Fed Support Person: Significant Other - Recovery Exam Fundal Tone: Firm Fundal Level: 2 Fingerbreadths Below Umbilicus Fundal Placement: Midline Lochia Amount: Scant Lochia Color: Rubra/Red Perineum Description: Intact, Minimal Bruising/Swelling Episiotomy/Laceration: None Bladder Status: Nonpalpable, Voiding - Exam General: Alert, Oriented Lungs: Clear to Auscultation, Normal Respiratory Effort Cardiovascular: Regular Rate, Regular Rhythm, No Murmurs GI/Abdominal Exam: Soft Extremities: Normal Inspection Skin: Warm, Dry, Intact - Problem List & Annotations (1) care in third trimester SNOMED Code(s): 138671995, 42461785, 74882334, 165558294, 289081199 Code(s): Z34.93 - ENCNTR FOR SUPRVSN OF NORMAL PREG, UNSP, THIRD TRIMESTER Status: Acute (2) labor in third trimester SNOMED Code(s): 2795431 Code(s): O60.03 - LABOR WITHOUT DELIVERY, THIRD TRIMESTER Status: Acute (3) No care in current in third trimester SNOMED Code(s): 931967444, 287323405 Code(s): O09.33 - SUPRVSN OF PREG W INSUFFICIENT ANTENAT CARE, THIRD TRIMESTER Status: Acute (4) Drug use affecting in third trimester SNOMED Code(s): 93406339, 09452981, 350450479 Code(s): O99.323 - DRUG USE COMPLICATING , THIRD TRIMESTER Status: Acute (5) Anemia affecting in third trimester SNOMED Code(s): 14517072, 47806399 Code(s): O99.013 - ANEMIA COMPLICATING , THIRD TRIMESTER Status: Acute (6) UTI (urinary tract infection) in in third trimester SNOMED Code(s): 298164574, 593154007 Code(s): O23.43 - UNSP INFCT OF URINARY TRACT IN , THIRD TRIMESTER Status: Acute (7) Pre-eclampsia SNOMED Code(s): 796041383 Code(s): O14.90 - UNSPECIFIED PRE-ECLAMPSIA, UNSPECIFIED TRIMESTER Status: Acute (8) (normal spontaneous vaginal delivery) SNOMED Code(s): 00601257, 191921832 Code(s): O80 - ENCOUNTER FOR FULL-TERM UNCOMPLICATED DELIVERY Status: Acute - Problem List Review Problem List Initiated/Reviewed/Updated: Yes - Assessment Assessment:: 19-year-old now PPD#1 status post - Plan Plan:: 1. Continue routine orders 2. Continue ferrous sulfate twice daily for anemia 3. Patient meets criteria for mild pre-eclampsia. Will continue closely monitor blood pressures. 4. Bottle feeding 5. Anticipate discharge 01/13/2020 Tiffany Lozano MD
[2020-01-13] MEDS: Acetaminophen 325 MG Tab PO PRN ×2 (05:07→08:54)
[2020-01-13] MEDS: Ibuprofen 800 MG Tab PO PRN (05:08)
[2020-01-13] MEDS: Ferrous Sulfate 325 MG Tab PO SCH (08:55)
[2020-01-13] MEDS: Docusate Sodium 100 MG Cap PO PRN (08:55)
[2020-01-13] MEDS: Prenatal Multivitamin with Calcium/Folic Acid/Iron Tab PO SCH (08:55)
[2020-01-13 11:18] VITALS: BP 124/68; PULSE 124
--- NOTE | 2020-01-16 01:08 | PCM.DCSUM1 ---
Discharge Summary - Hospital Course Free Text/Narrative:: 19-year-old PPD#2 s/p at 36w1d per ultrasound on the day of delivery. No care. Diagnosis: Stroke: No - Discharge Data Discharge Date: 01/13/20 Discharge Disposition: Home, Self-Care 01 Condition: Good - Referral to Home Health Primary Care Physician: Lopez Lozano MD - Discharge Diagnosis/Problem(s) (1) care in third trimester SNOMED Code(s): 530217312, [id number], 41875258, 286819976, 067069839 ICD Code: Z34.93 - ENCNTR FOR SUPRVSN OF NORMAL PREG, UNSP, THIRD TRIMESTER Status: Acute (2) labor in third trimester SNOMED Code(s): 5192160 ICD Code: O60.03 - LABOR WITHOUT DELIVERY, THIRD TRIMESTER Status: Acute (3) No care in current in third trimester SNOMED Code(s): 119513323, 001677342 ICD Code: O09.33 - SUPRVSN OF PREG W INSUFFICIENT ANTENAT CARE, THIRD TRIME STER Status: Acute (4) Drug use affecting in third trimester SNOMED Code(s): 69104860, 46762678, 600256363 ICD Code: O99.323 - DRUG USE COMPLICATING , THIRD TRIMESTER Status: Acute (5) Anemia affecting in third trimester SNOMED Code(s): 10452729, 48456294 ICD Code: O99.013 - ANEMIA COMPLICATING , THIRD TRIMESTER Status: Acute (6) UTI (urinary tract infection) in in third trimester SNOMED Code(s): 484430242, 926973967 ICD Code: O23.43 - UNSP INFCT OF URINARY TRACT IN , THIRD TRIMESTER Status: Acute (7) Pre-eclampsia SNOMED Code(s): 248148957 ICD Code: O14.90 - UNSPECIFIED PRE-ECLAMPSIA, UNSPECIFIED TRIMESTER Status: Acute (8) (normal spontaneous vaginal delivery) SNOMED Code(s): 42305628, 394493493 ICD Code: O80 - ENCOUNTER FOR FULL-TERM UNCOMPLICATED DELIVERY Status: Acute - Patient Summary/Data Operative Procedure(s) Performed: None Complications: None Consults: None Labs Pending at D/C: Remainder of IOB labs Recommended Follow-up Testing/Procedures: None Planned Operative Procedure(s) after DC: None Hospital Course: Please see subjective section - Patient Instructions Diet: Usual Diet as Tolerated Activity: As Tolerated, No Lifting Over 20 Pounds Driving: May Drive Today Showering/Bathing: May Shower Notify Provider of: Fever, Increased Pain - Discharge Plan *PRESCRIPTION DRUG MONITORING PROGRAM REVIEWED*: No *COPY OF PRESCRIPTION DRUG MONITORING REPORT IN PATIENT MANSOOR: No Home Medications: Home Meds Acetaminophen [Tylenol] 650 mg PO Q4H PRN tablet 01/13/20 [Rx] Docusate Sodium [Colace] 100 mg PO BID PRN cap 01/13/20 [Rx] Ferrous Sulfate 325 mg PO BIDMEALS tablet 01/13/20 [Rx] Ibuprofen [Motrin] 800 mg PO Q8H PRN tablet 01/13/20 [Rx] Vit with Ca/FA/Iron [ Plus Iron] 1 each PO DAILY tablet 01/13/20 [Rx] Patient Handouts: Baby Blues, Care After Vaginal Delivery Referrals: Tiffany Lozano MD [Primary Care Provider] - (6-8 weeks for visit) - Discharge Summary/Plan Comment DC Time >30 min.: No Discharge Summary/Plan Comment: Discharge home today. Follow-up in 6-8 weeks for routine care. Reason to return sooner were reviewed. Routine discharge information will be provided by nursing staff. - Patient Data Vitals - Most Recent: Last Vital Signs Temp 36.9 C 01/13/20 08:00 Pulse 124 H 01/13/20 08:00 Resp 18 01/13/20 08:00 BP 124/68 01/13/20 08:00 Pulse Ox 96 01/13/20 08:00 Weight - Most Recent: 66.678 kg Med Orders - Current: Current Medications Discontinued Medications Acetaminophen (Tylenol) 650 mg PO Q4H PRN PRN Reason: Pain (mild 1-3) Last Admin: 01/13/20 08:54 Dose: 650 mg Documented by: Benzocaine/Menthol (Dermoplast Pain Relief Kennedy) 0 gm TOP Q4H PRN PRN Reason: Perineal comfort measures Carboprost Tromethamine (Hemabate Ds) 250 mcg IM ASDIRECTED PRN PRN Reason: HEMORRHAGE Docusate Sodium (Colace) 100 mg PO BID PRN PRN Reason: Constipation Last Admin: 01/13/20 08:55 Dose: 100 mg Documented by: Epinephrine HCl (Adrenalin) Confirm Administered Dose 1 mg .ROUTE .STK-MED ONE Stop: 01/11/20 03:24 Last Admin: 01/11/20 04:17 Dose: Not Given Documented by: Epinephrine HCl (Adrenalin) 0.1 mg .XX .STK-MED ONE Stop: 01/11/20 15:37 Fentanyl (Sublimaze) Confirm Administered Dose 100 mcg .ROUTE .STK-MED ONE Stop: 01/11/20 03:24 Last Admin: 01/11/20 04:17 Dose: Not Given Documented by: Fentanyl (Sublimaze) 30 mcg IV .STK-MED ONE Stop: 01/11/20 15:37 Ferrous Sulfate (Ferrous Sulfate) 325 mg PO BIDMEALS MACIEL Last Admin: 01/13/20 08:55 Dose: 325 mg Documented by: Lactated Ringer's (Ringers, Lactated) 1,000 mls @ 125 mls/hr IV ASDIRECTED [facility] Last Admin: 01/11/20 03:25 Dose: 125 mls/hr Documented by: Lactated Ringer's (Ringers, Lactated) 1,000 mls @ 999 mls/hr IV BOLUS ONE Stop: 01/11/20 04:18 Last Admin: 01/11/20 04:18 Dose: Not Given Documented by: Tranexamic Acid 1,000 mg/ (Sodium Chloride) 110 mls @ 660 mls/hr IV ONETIME PRN PRN Reason: Bleeding Oxytocin/Sodium Chloride (Pitocin In Ns 30 Unit/500 Ml) 30 unit in 500 mls @ 2 mls/hr IV TITRATE [facility]; Protocol Last Titration: 01/11/20 07:40 Dose: 0 munits/min, 0 mls/hr Documented by: Penicillin G Potassium 5 (millunits/ Sodium Chloride) 100 mls @ 200 mls/hr IV ONETIME ONE Stop: 01/11/20 03:47 Last Admin: 01/11/20 03:30 Dose: 200 mls/hr Documented by: Penicillin G Potassium 3 (millunits/ Sodium Chloride) 100 mls @ 200 mls/hr IV Q4H [facility] Ceftriaxone Sodium 1 gm/ (Sodium Chloride) 50 mls @ 100 mls/hr IV ONETIME ONE Stop: 01/11/20 05:29 Last Admin: 01/11/20 09:54 Dose: Not Given Documented by: Ceftriaxone Sodium 1 gm/ (Sodium Chloride) 50 mls @ 100 mls/hr IV ONETIME ONE Stop: 01/11/20 09:59 Last Admin: 01/11/20 09:30 Dose: 100 mls/hr Documented by: Ibuprofen (Motrin) 800 mg PO Q8H PRN PRN Reason: Mild Pain or Fever Last Admin: 01/13/20 05:08 Dose: 800 mg Documented by: Lidocaine HCl (Xylocaine-Mpf 1%) 30 ml INJECT ASDIRECTED PRN PRN Reason: Perineal Repair Measles/Mumps/Rubella Vaccine Live (M-M-R Ii Vaccine) 0.5 ml SUBCUT .ONCE ONE Stop: 01/12/20 14:01 Last Admin: 01/12/20 17:44 Dose: 0.5 ml Documented by: Methylergonovine Maleate (Methergine) 0.2 mg IM ASDIRECTED PRN PRN Reason: Hemorrhage Misoprostol (Cytotec) 800 mcg RECTAL ASDIRECTED PRN PRN Reason: Hemorrhage Ondansetron HCl (Zofran) 4 mg IVPUSH Q4H PRN PRN Reason: Nausea/Vomiting Oxytocin (Pitocin) 10 unit IM ONETIME PRN PRN Reason: Bleeding Penicillin G Potassium (Pfizerpen) Confirm Administered Dose 5 millunits .ROUTE .STK-MED ONE Stop: 01/11/20 03:26 Last Admin: 01/11/20 04:17 Dose: Not Given Documented by: Prenat Multivit/[place]/Iron/Folic Ac ( Plus Iron) 1 each PO DAILY MACIEL Last Admin: 01/13/20 08:55 Dose: 1 each Documented by: Simethicone (Simethicone) 80 mg PO Q4H PRN PRN Reason: Gas Sodium Chloride (Saline Flush) 10 ml FLUSH ASDIRECTED PRN PRN Reason: Keep Vein Open Sodium Chloride (Normal Saline) 0.4 ml IV .STK-MED ONE Stop: 01/11/20 15:37 Sufentanil Citrate (Sufenta) Confirm Administered Dose 50 mcg .ROUTE .STK-MED ONE Stop: 01/11/20 03:25 Last Admin: 01/11/20 04:17 Dose: Not Given Documented by: Sufentanil Citrate (Sufenta) 20 mcg IV .STK-MED ONE Stop: 01/11/20 15:37 Domingo Valdes (Medi-Pads) 1 each TOP Q4HR PRN PRN Reason: Perineal Comfort Measure
== END 2020-01-13 11:45 | disposition home or self-care (01) | DRG 805 ==
LOC: DL.OBCHECK 02:12 → DL.OB 02:35 → OBSVTOIN 04:43
PROVIDERS: ADMIT Family Medicine; ATTEND Family Medicine
PROC: 10E0XZZ Delivery of Products of Conception, External Approach (ICD-10-PCS; principal; 2020-01-11)
PROC: 10907ZC Drainage of Amniotic Fluid, Therapeutic from Products of Conception, Via Natural or Artificial Opening (ICD-10-PCS; 2020-01-11)
PROC: 3E0R3BZ Introduction of Anesthetic Agent into Spinal Canal, Percutaneous Approach (ICD-10-PCS; 2020-01-11)
PROC: 00HU33Z Insertion of Infusion Device into Spinal Canal, Percutaneous Approach (ICD-10-PCS; 2020-01-11)
DX: O99.02 Anemia complicating childbirth (principal); O60.14X0 Preterm labor third trimester with preterm delivery third trimester, not applicable or unspecified; Z37.0 Single live birth; O99.324 Drug use complicating childbirth; O23.43 Unspecified infection of urinary tract in pregnancy, third trimester; D64.9 Anemia, unspecified; O13.4 Gestational [pregnancy-induced] hypertension without significant proteinuria, complicating childbirth; O69.81X0 Labor and delivery complicated by cord around neck, without compression, not applicable or unspecified; Z3A.36 36 weeks gestation of pregnancy; F11.90 Opioid use, unspecified, uncomplicated; F12.90 Cannabis use, unspecified, uncomplicated; Z28.82 Immunization not carried out because of caregiver refusal
CPT/HCPCS: 36415; 51701; 59409; 76805; 80305-QW; 80307; 81001; 82565; 82570; 83615; 84156; 84450; 84460; 84520; 84550; 85027; 86592; 86593; 86762; 86803; 86850; 86900; 86901; 87081; 87086; 87210; 87340; 87389; 87491; 87591; 90471; 90707; A9270-GY; J0171; J0696; J2540; J2590; J3010; J7050; J7120; U0002